=== PATIENT | female | born 1985 | race Two or more races ===

== ENCOUNTER 2020-03-08 10:52 | Emergency (ER) | payer OTHER ==
[~2020-03-08] VITALS: Ht 162.6 cm; Wt 53.5 kg
[~2020-03-08 10:52] MED LIST: Intestinex CAP PO; VANCOMYCIN HCL1 GM PO
== END 2020-03-08 21:38 | disposition home or self-care (01) ==
LOC: ER 10:52
DX: K52.89 Other specified noninfective gastroenteritis and colitis (principal); R10.2 Pelvic and perineal pain

== ENCOUNTER 2021-02-25 07:58 | Emergency (ER) | payer OTHER ==
[~2021-02-25] VITALS: Ht 162.6 cm; Wt 47.6 kg
== END 2021-02-25 14:38 | disposition home or self-care (01) ==
LOC: ER 07:58
DX: R10.9 Unspecified abdominal pain (principal)